=== PATIENT | male | born 1990 | race Caucasian/White ===

== ENCOUNTER 2018-12-26 14:54 | Emergency (ER) | payer OTHER ==
[~2018-12-26] VITALS: Ht 172.7 cm; Wt 87.1 kg
[2018-12-26 15:01] VITALS: Ht 172.7 cm; Wt 87.1 kg
[2018-12-26 16:01] VITALS: BP 115/65
== END 2018-12-26 16:01 | disposition home or self-care (01) ==
LOC: ED 14:54
DX: R07.89 Other chest pain (principal)
CPT/HCPCS: J1885

== ENCOUNTER 2019-06-14 08:21 | Emergency (ER) | payer MEDICAID | END 2019-06-14 09:38 | disposition left against medical advice (07) | LOC: ED 08:21 | DX: Z53.21 Procedure and treatment not carried out due to patient leaving prior to being seen by health care provider (principal) ==